=== PATIENT | female | born 2000 | race Caucasian/White ===

== ENCOUNTER 2020-02-19 16:12 | Emergency (ER) | payer MEDICAID ==
[~2020-02-19] VITALS: Ht 152.4 cm; Wt 57.6 kg
[2020-02-19 16:30] VITALS: BP 111/73
--- NOTE | 2020-02-19 16:32 | NUR ---
urine cup handed to pt for sample
--- NOTE | 2020-02-19 17:07 | NUR ---
AMBULATED TO ER BED 2
--- NOTE | 2020-02-19 17:14 | NUR ---
19 Y/O FEMALE PRESENTS WITH RIGHT FLANK PAIN RADIATING TO RIGHT PELVIC REGION X3 DAYS. PT STATES SHE IS EXPERIENCING DYSURIA AND DRIBBLING WITH URINATION. REPORTS PAIN 9/10 AND HAS BEEN MANAGING WITH TYLENOL AT HOME, BUT HAS NOT TAKEN ANY TYLENOL TODAY. ABD SOFT/NON TENDER/ NON DISTENDED. PT STATES SHE HAS NAUSEA ON/OFF X3 DAYS. DENIES FEVER/CHILLS/COUGH/SOB. NO PMH NKA
[2020-02-19] MEDS ORDERED: NACL 0.9% 1,000 ML IV ONE (17:40)
[2020-02-19] MEDS ORDERED: ONDANSETRON 4 MG/2 ML VIAL IVP ONE (17:40)
[2020-02-19] MEDS ORDERED: KETOROLAC 15 MG/ML VIAL IVP ONE (17:40)
--- NOTE | 2020-02-19 18:12 | NUR ---
PT TAKEN TO CT
[2020-02-19 18:16] LABS: BASOPHILS % (AUTO) 0.4 % (0.0-2.0); EOSINOPHILS # (AUTO) 0.1 K/uL (0-0.4); EOSINOPHILS % (AUTO) 0.8 % (0.0-4.0); HEMOGLOBIN 13.9 g/dL (12.0-16.0); LYMPHOCYTES # (AUTO) 2.3 K/uL (2.5-16.5); LYMPHOCYTES % (AUTO) 18.6 % (20.5-51.1); MEAN CORPUSCULAR HEMOGLOBIN 29 pg (27-31); MEAN CORPUSCULAR HGB CONC 33 g/dL (33-37); MEAN CORPUSCULAR VOLUME 85.9 fL (80-94); MONOCYTES # (AUTO) 0.8 K/uL (0.8-1.0); MONOCYTES % (AUTO) 6.3 % (1.7-9.3); NEUTROPHILS # (AUTO) 9.1 K/uL (1.8-7.7); NEUTROPHILS % (AUTO) 73.9 % (42.2-75.2); PLATELET COUNT (AUTO) 326 K/uL (140-450); RED BLOOD CELL COUNT(AUTO) 4.88 MIL/uL (4.20-5.40); WHITE BLOOD COUNT (AUTO) 12.3 K/uL (4.5-11.0)
[2020-02-19 18:17] LABS: APPEARANCE,URINE HAZY (CLEAR); BILIRUBIN,URINE NEGATIVE (NEGATIVE); BLOOD, URINE NEGATIVE (NEGATIVE); COLOR,URINE AMBER (YELLOW); LEUKOCYTE ESTERASE ,URINE NEGATIVE (NEGATIVE); NITRITE, URINE NEGATIVE (NEGATIVE); UGLUCOSE NEGATIVE (NEGATIVE)
--- NOTE | 2020-02-19 18:20 | NUR ---
PT BACK FROM CT, STATES PAIN HAS DECREASED TO 0/10. VSS. ALL NEEDS MET.
[2020-02-19 18:28] LABS: ANION GAP 10.3 (8-16); CARBON DIOXIDE 29.4 mmol/L (21-32); CREATININE 0.7 mg/dL (0.6-1.3); POTASSIUM 3.7 mmol/L (3.5-5.1); TOTAL BILIRUBIN 0.3 mg/dL (0.0-1.0)
[2020-02-19 19:42] VITALS: BP 115/82
--- NOTE | 2020-02-19 19:42 | NUR ---
Patient discharged with v/s stable. Written and verbal after care instructions given and explained. Patient alert, oriented and verbalized understanding of instructions. Ambulatory with steady gait. All questions addressed prior to discharge. ID band removed. Patient advised to follow up with PMD. Rx of FLEXERIL, ZOFRAN, IBUPROFEN given. Patient educated on indication of medication including possible reaction and side effects. Opportunity to ask questions provided and answered.
--- NOTE | 2020-03-03 14:36 | NUR ---
LATE ENTRY- NORMAL SALINE 0.9% IV DISCONTINUED AT 1941
== END 2020-02-19 19:42 | disposition home or self-care (01) ==
LOC: MED 16:12
DX: R10.9 Unspecified abdominal pain (principal); R11.2 Nausea with vomiting, unspecified
CPT/HCPCS: 36415; 74176; 80053; 81003; 81025; 83690; 85025; 96361; 96374; 96375; 99284; J1885; J2405; J7030

== ENCOUNTER 2020-07-06 10:19 | Emergency (ER) | payer MEDICAID ==
[~2020-07-06] VITALS: Ht 152.4 cm; Wt 61.2 kg
[2020-07-06 10:27] VITALS: BP 120/68
--- NOTE | 2020-07-06 10:30 | NUR ---
Pt placed in tent for covid precautions
--- NOTE | 2020-07-06 10:31 | NUR ---
19 y/o female from home c/o N/V/D, headache, fever, and body aches x 3 days. RR even and unlabored. Solo chest pain. Afebrile at this time, denies taking medication today. Skin warm, dry, intact. Slightly tachycardic upon arrival. Awake and alert. medhx: denies
--- NOTE | 2020-07-06 11:24 | NUR ---
PT SEEN WITH C/O GENERALIZED BODYACHES, N/V AND DIARRHEA. PT DENIES CONTACT WITH ANYONE KNOWN TO HAVE COVID 19. SHE DOES C/O OF LOWER ABDOMINAL PAIN WITH SOME GUARDING ON EXAMINATION, BOWEL SOUNDS ACTIVE. LUNG SOUNDS ARE CLEAR, HEART WITH REGULAR RATE AND RHYTHM.
[2020-07-06] MEDS ORDERED: ONDANSETRON 4 MG ODT PO ONE (12:10)
[2020-07-06] MEDS ORDERED: DIPHENOXYLATE /ATROPINE 2.5 MG TAB PO ONE (12:10)
--- NOTE | 2020-07-06 12:40 | NUR ---
PT SWABBED FOR COVID MAJOR PER ORDER. SPECIMEN DELIVERED AND SIGNED IN TO LAB.
--- NOTE | 2020-07-06 13:03 | NUR ---
PT REEVALUATED, STATES NO RELIEF OF SYMPTOMS AT THIS TIME. PT VSS, DOES NOT APPEAR IN DISTRESS, RESTING IN BED.
--- NOTE | 2020-07-06 13:52 | NUR ---
DR. OLGUIN NOTIFIED POSITIVE COVID TEST.
[2020-07-06 14:07] VITALS: BP 118/59
--- NOTE | 2020-07-06 14:07 | NUR ---
Patient discharged with v/s stable. Written and verbal after care instructions given and explained. Patient alert, oriented and verbalized understanding of instructions. Ambulatory with steady gait. All questions addressed prior to discharge. ID band removed. Patient advised to follow up with PMD. Rx of Zofran 4mg, Naprosyn 500mg, and Lomotil 2.5mg-0.025mg given. Patient educated on indication of medication including possible reaction and side effects. Opportunity to ask questions provided and answered.
--- NOTE | 2020-07-06 17:00 | NUR ---
OBTAINED RESULTS FOR POSITIVE COVID FROM LAB - PLACED IN INFECTION CONTROL INBOX
== END 2020-07-06 14:07 | disposition home or self-care (01) ==
LOC: MED 10:19
DX: U07.1 COVID-19 (principal); R11.10 Vomiting, unspecified; R19.7 Diarrhea, unspecified
CPT/HCPCS: 87426; 99283; Q0162

== ENCOUNTER 2022-10-05 15:03 | Emergency (ER) | payer MEDICAID ==
[~2022-10-05] VITALS: Ht 157.5 cm; Wt 57.6 kg
[2022-10-05 15:10] VITALS: BP 116/89
[2022-10-05] MEDS ORDERED: ONDANSETRON 4 MG ODT PO ONE (15:45)
[2022-10-05] MEDS ORDERED: DICYCLOMINE 10 MG CAP PO ONE (15:45)
[2022-10-05 16:43] LABS: BASOPHILS % (AUTO) 0.4 % (0.0-2.0); EOSINOPHILS % (AUTO) 0.2 % (0.0-4.0); HEMATOCRIT 41.9 % (36-48); HEMOGLOBIN 14.4 g/dL (12.0-16.0); LYMPHOCYTES # (AUTO) 0.7 K/uL (2.5-16.5); LYMPHOCYTES % (AUTO) 11.7 % (20.5-51.1); MEAN CORPUSCULAR HEMOGLOBIN 29 pg (27-31); MEAN CORPUSCULAR HGB CONC 34 g/dL (33-37); MEAN CORPUSCULAR VOLUME 85.3 fL (80-94); MONOCYTES # (AUTO) 0.5 K/uL (0.8-1.0); MONOCYTES % (AUTO) 8.2 % (1.7-9.3); NEUTROPHILS # (AUTO) 4.8 K/uL (1.8-7.7); NEUTROPHILS % (AUTO) 79.5 % (42.2-75.2); PLATELET COUNT (AUTO) 274 K/uL (140-450); RED BLOOD CELL COUNT(AUTO) 4.91 MIL/uL (4.20-5.40); RED CELL DISTRIBUTION WIDTH 12.9 % (11.6-13.7); WHITE BLOOD COUNT (AUTO) 6.1 K/uL (4.8-10.8)
[2022-10-05 17:25] LABS: BILIRUBIN,URINE NEGATIVE (NEGATIVE); BLOOD, URINE 1+ (NEGATIVE); COLOR,URINE YELLOW (YELLOW); LEUKOCYTE ESTERASE ,URINE TRACE (NEGATIVE); NITRITE, URINE NEGATIVE (NEGATIVE); UGLUCOSE NEGATIVE (NEGATIVE)
[2022-10-05 17:26] LABS: APPEARANCE,URINE HAZY (CLEAR)
[2022-10-05 17:45] LABS: RBC,URINE 0-5 /HPF (0-5); WBC,URINE 0-5 /HPF (0-5)
--- NOTE | 2022-10-05 18:25 | NUR ---
21 Y/O FEMALE BIB SELF C/O LOW BACK PAIN X1 WEEK, NAUSEA/VOMITING AND GEN ABD PAIN X1DAY. DENIES ANY DIARRHEA NKA PMH: DENIES
[2022-10-05 18:28] LABS: ALBUMIN 4.6 g/dL (3.4-5.0); ANION GAP 13.8 (8-16); CARBON DIOXIDE 26.8 mmol/L (21-32); CREATININE 0.6 mg/dL (0.6-1.3); POTASSIUM 3.6 mmol/L (3.5-5.1); TOTAL BILIRUBIN 0.7 mg/dL (0.0-1.0)
[2022-10-05] MEDS ORDERED: ONDA-188 PO (18:44)
[2022-10-05] MEDS ORDERED: MIRABULK PO (18:44)
--- NOTE | 2022-10-05 18:54 | NUR ---
Patient discharged with v/s stable. Written and verbal after care instructions ABOUT CONSTIPATION given and explained. Patient alert, oriented and verbalized understanding of instructions. Ambulatory with steady gait. All questions addressed prior to discharge. ID band removed. Patient advised to follow up with PMD. Rx of MIRALAX, ZOFRAN ODT given. Patient educated on indication of medication including possible reaction and side effects. Opportunity to ask questions provided and answered.
== END 2022-10-05 18:54 | disposition home or self-care (01) ==
LOC: MED 15:03
DX: K59.00 Constipation, unspecified (principal)
CPT/HCPCS: 36415; 74018; 80053; 81001; 81025; 83690; 85025; 99284; Q0162